=== PATIENT | male | born 1995 | race Two or more races ===

== ENCOUNTER 2024-11-08 09:20 | Emergency (ER) | payer BC ==
[2024-11-08 10:24] LABS: BASOPHILS ABSOLUTE AUTO 0.0 K/mm3 (0.0-0.2); BASOPHILS PERCENT AUTO 0.4 % (0.0-1.0); EOSINOPHILS ABSOLUTE AUTO 0.2 K/mm3 (0.0-0.4); EOSINOPHILS PERCENT AUTO 2.5 % (0.0-6.0); IMMATURE GRAN ABSOLUTE AUTO 0.02 K/mm3 (0.00-0.05); IMMATURE GRAN PERCENT AUTO 0.2 % (0.0-0.4); LYMPHOCYTES ABSOLUTE AUTO 1.1 K/mm3 (1.0-4.8); LYMPHOCYTES PERCENT AUTO 13.4 % (24.0-44.0); MEAN PLATELET VOLUME 10.5 fl (9.4-12.4); MONOCYTES ABSOLUTE AUTO 0.7 K/mm3 (0.0-0.8); MONOCYTES PERCENT AUTO 7.8 % (0.0-8.0); NEUTROPHILS ABSOLUTE AUTO 6.4 K/mm3 (1.8-7.7); NEUTROPHILS PERCENT AUTO 75.7 % (41.0-71.0); NRBC ABSOLUTE 0.00 (0.00-0.02); NRBC PERCENT 0.0 % (0.0-0.2); PLATELET COUNT,PLT 245 K/mm3 (150-400); RED BLOOD CELL COUNT 4.66 M/mm3 (4.52-5.90); WHITE BLOOD CELL COUNT,WBC 8.44 K/mm3 (3.9-11.3)
[2024-11-08 10:31] LABS: INR 1.06
[2024-11-08 10:34] LABS: A/G RATIO 1.1 (1-2); ALANINE AMINOTRANSFERASE,ALT 292.0 U/L (16-63); ASPARTATE AMNIOTRANSFERASE,AST 170.0 U/L (15-37); BILIRUBIN DIRECT 7.5 mg/dl (0.0-0.2); BILIRUBIN TOTAL 13.7 mg/dL (0.2-1.0); BLOOD UREA NITROGEN,BUN 11.0 mg/dL (7-18); CARBON DIOXIDE,CO2 29.0 mEq/L (21-32); CHLORIDE,CL 97.0 mEq/L (98-107); CREATINE KINASE,CK 352.0 U/L (39-308); EST CRCL DRUG DOSING (CG) 140.68 mL/min; ESTIMATED GFR 123.0 mL/min (>60); GLUCOSE RANDOM 97.0 mg/dL (70-99); POTASSIUM,K 3.6 mEq/L (3.5-5.1); SODIUM,NA 137.0 mEq/L (136-145)
[2024-11-08 10:39] LABS: CREATININE 0.8 mg/dL (0.7-1.3); ETHANOL BLOOD MEDICAL 0.0 gm% (0.00); PROTEIN TOTAL,TP 7.5 g/dl (6.4-8.2)
[2024-11-08 11:05] LABS: APPEARANCE,URINE CLEAR (Clear); GLUCOSE,URINE NEGATIVE (Negative); OCCULT BLOOD,URINE NEGATIVE (Negative)
[2024-11-08 11:15] LABS: BUPRENORPHINE SCREEN,URINE NEGATIVE (CUTOFF=10); METHADONE SCREEN, URINE NEGATIVE (CUT0FF=200); METHAMPHETAMINES SCREEN, URINE NEGATIVE (CUTOFF=500); OXYCODONE SCREEN,URINE NEGATIVE (CUT0FF=100); THC SCREEN,URINE 20 NG/ML NEGATIVE (CUTOFF=50)
[2024-11-08 11:16] LABS: AMPHETAMINES SCREEN, URINE NEGATIVE (CUTOFF=500)
[2024-11-08] MEDS: Ondansetron 4 MG/2 ML SDV IVPUSH ONE (12:25)
== END 2024-11-08 13:35 | disposition left against medical advice (07) ==
LOC: JD.ED 09:20
DX: K80.11 Calculus of gallbladder with chronic cholecystitis with obstruction (principal); E80.6 Other disorders of bilirubin metabolism
CPT/HCPCS: 36415; 76705; 80053; 80306; 80307; 81003; 82248; 82550; 83690; 83735; 85025; 85610; 96361; 96365; 96375; 99284; J2405; J2470; J2543; J7030